=== PATIENT | male | born 1960 | race Caucasian/White ===

== ENCOUNTER 2019-10-16 20:11 | Inpatient (IN) | payer MEDICARE, MEDICAID ==
[2019-10-17 02:54] VITALS: BP 153/92
[2019-10-17] MEDS ORDERED: Magnesium Hydroxide (MOM) 30 mL UDC PO PRN (06:33)
[2019-10-17] MEDS ORDERED: Fleet Enema 135 mL RC PRN (06:33)
[2019-10-17] MEDS: Insulin Glargine 100 units/ml 10ml Vial SUBQ SCH ×2 (09:34→17:00)
[2019-10-17] MEDS: INSULIN LISPRO SLIDING SCALE 100 UNITS/ML UNIT SUBQ SCH ×4 (09:46→20:27)
--- NOTE | 2019-10-17 12:38 | Psychiatric Evaluation ---
DATE OF SERVICE: 10/17/2019 IDENTIFYING DATA: The patient is a 59-year-old male, resident of [facility]. Information obtained by directly interviewing the patient as well as reviewing the admission papers and they are reliable. JUSTIFICATION OF HOSPITALIZATION: The patient is admitted here on a voluntary basis in view of his acute agitation and aggressive behavior. CHIEF COMPLAINT: "I don't know why they have to send me in here." HISTORY OF PRESENT ILLNESS: This is the first psychiatric hospitalization to [facility] for this patient who is reported to have been screaming and yelling and getting easily agitated and the patient could not be contained at a lower level of care and hence the patient has been referred over here for stabilization. I tried to get some information from the patient, but the patient has been very irritable and angry and is stating there is no reason for him to be in here, he needs to be back at the facility, is reporting that he has been staying in there for the past 6 months. There is 1 person that has been causing more trouble and that is the reason why he is here. The patient is reluctant to take any medications at this time. PAST PSYCHIATRIC HISTORY: The patient denies any prior psychiatric hospitalizations. PAST MEDICAL HISTORY: The patient has multiple medical problems. Physical examination is requested by Dr. Gooden. The patient has a history of left foot osteomyelitis with status post transmetatarsal amputation in 10/2018 and the patient's history significant for diabetes mellitus. The patient is not allergic to any medications. SOCIAL HISTORY: The patient is resident of the [facility] for the past 6 months. The patient is reporting that his family is in [place] and he has no family around here. The patient has been worked in a long period of time. STRENGTH AND ASSETS: The patient is motivated. MENTAL STATUS EXAMINATION: The patient is a 59-year-old, looking his stated age. The patient is in a wheelchair. The patient is irritable and angry. Speech is noted to be coherent and relevant. Mood is noted to be dysphoric. Insight and judgment are noted to be impaired. Impulse control is noted to be limited. Attention span and concentration are noted to be fair. The patient is reported to have been getting easily frustrated. The patient is not presenting with any threats to harm self at this time, but the patient is reported to be aggressive. The patient at this time is refusing to take any medications. The patient's insight and judgment at this time are noted to be very much impaired. DIAGNOSTIC IMPRESSION: AXIS I: Mood disorder, not otherwise specified. AXIS II: None. AXIS III: As per Dr. Gooden. IMMEDIATE TREATMENT PLAN: The patient is going to be observed on inpatient unit, provided with supportive psychotherapy. The patient is going to be encouraged to participate in the groups and verbalize the concerns. The patient is going to be provided with the supportive therapy and the patient is going to be encouraged to participate. The patient is going to be assessed for depression because of the multiple medical problems and the patient is going to be considered for a mood stabilizer in case if he needs it, but at this time, he is refusing to take any medication. ESTIMATED LENGTH OF STAY: 5-7 days. DISCHARGE CRITERIA: When he no longer a threat to self or others and be able to cope up with the stress. [facility]# [id number]
--- NOTE | 2019-10-17 15:06 | History & Physical ---
ADMIT DATE: 10/17/2019 CHIEF COMPLAINT: The patient is agitated. HISTORY OF PRESENT ILLNESS: We have a 59-year-old male with diabetes, history of leg amputation, history of osteomyelitis. He was transferred for acute agitation at the lower level of care. The patient was acting aggressive according to medical records. The patient has no chest pain, shortness of breath. No nausea, vomiting, abdominal pain, or diarrhea. PAST MEDICAL HISTORY: Diabetes and history of osteomyelitis. PAST SURGICAL HISTORY: History of lower extremity amputation. MEDICATIONS: List reviewed. ALLERGIES: None. SOCIAL HISTORY: Tobacco, IV drugs, ETOH negative. PHYSICAL EXAMINATION: VITAL SIGNS: Temperature 98.8, pulse 90, respirations 20, blood pressure is 137/90. HEENT: Normocephalic and atraumatic head exam. NECK: Supple. CARDIOVASCULAR: Regular rate and rhythm. LUNGS: Decreased breath sounds. ABDOMEN: Soft, nontender. EXTREMITIES: No edema, cyanosis or clubbing. ASSESSMENT: 1. Diabetes. 2. Peripheral vascular disease, status post amputation. 3. Hypertension. 4. Agitation. 5. Depression. PLAN: The patient will continue with supportive care. The patient will continue with Accu-Cheks a.c. and at bedtime. The patient will get Lantus 15 ____ daily. JOB# [id number]
[2019-10-18] MEDS: INSULIN LISPRO SLIDING SCALE 100 UNITS/ML UNIT SUBQ SCH ×4 (06:42→20:23)
[2019-10-18] MEDS: Insulin Glargine 100 units/ml 10ml Vial SUBQ SCH ×2 (09:30→17:12)
--- NOTE | 2019-10-18 11:19 | Consultation ---
DATE OF CONSULTATION: 10/18/2019 TYPE OF CONSULTATION: Psychology consult. HISTORY OF PRESENT ILLNESS: The patient is a 59-year-old male. The patient is a resident of [facility]. The following is by review of the medical record and by the patient self-report. The patient is being admitted due to acute agitation and aggressive behavior. The staff at the patient's facility reports that the patient had become easily agitated and uncontainable with screaming and yelling episodes. The patient was transferred here for stabilization. Upon interview, the patient states that there is no reason for him to be hospitalized and he does not understand why he was sent here. The patient is stating that he does not want to take any medications. The patient denied any suicidal ideation, plan or intention at the time of this clinical interview. PAST MEDICAL HISTORY: Please see history and physical by Dr. Gooden. PAST PSYCHIATRIC HISTORY: The patient denied any prior psychiatric hospitalizations. Records are unavailable and details are unknown. The patient is under the care of a psychiatrist at his placement. SUBSTANCE ABUSE HISTORY: The patient denied any history of alcohol, tobacco, illicit or recreational drug use. BRIEF PSYCHOSOCIAL HISTORY: The patient is a resident of [facility]. The patient states he has a friend named Taylor, who is involved in his care. The patient reports that he has a family that lives in [facility], but no one here in [place]. The patient is unemployed and did not respond to the questions about occupational or educational history. The patient is single and never . The patient stated no specific methodist affiliation. He denies any history of physical or sexual abuse or any current legal problems. MENTAL STATUS EXAMINATION: The patient appears to be his stated age. The patient's attitude is guarded. Eye contact is fair. Speech is loud. Mood is irritable and angry and possibly dysphoric. Affect is mood congruent and reactive. Thought process shows to be linear and concrete. The patient responded to the clinical questions relevantly. The patient denied any suicidal ideation, plan or intention. He denied any hallucinations or any delusions. The patient's impulse control is inadequate. Concentration is fair. The patient was able to sustain focus and attention. Sensorium is alert and oriented to person, place, and date. The patient's memory seems to be reasonably intact for immediate, short term and terminal clerk dimensions. The patient did not participate in the interpretation of proverbs and continued to be frustrated and stated he is going to refuse medication. Insight is poor. Judgment is compromised DIAGNOSTIC IMPRESSION: AXIS I: Mood disorder, not otherwise specified. AXIS II: Deferred. AXIS III: Per Dr. Gooden. TREATMENT PLAN: The patient has been seen by Dr. Leahy for psychiatric evaluation and for the management of the patient's psychotropic medications. We will provide supportive psychotherapy to include de-escalation as well as cognitive and behavioral refocusing and redirection. We will provide stress management for the patient to increase his frustration tolerance and more appropriately interact with peers and staff at his placement. We will encourage the patient to verbalize his concerns versus anger outbursts. We will provide anger management as well. We will provide coping strategies for phase of life issues. We will reevaluate for depression and provide motivational enhancement for the patient to consider medication per the attending psychiatrist. Thank you, Dr. Leahy for this consult and the opportunity to participate with you in this patient's care. JOB# [id number] BERRY
--- NOTE | 2019-10-19 00:26 | Progress Notes ---
DATE: 10/18/2019 SUBJECTIVE: Staff was spoken to. The patient is interviewed. Mood is noted to be irritable. Affect is constricted. The patient is not engaging and the patient is stating that there is no reason for him to be in here, he needs to be back at the facility. Coping skills at this time are noted to be very poor. The patient is getting easily frustrated. The patient has no insight into his illness. The patient is not willing to take any other medications and hence I have decided to increase the dose of the gabapentin to 300 mg twice a day to contain the mood swings and irritability and follow the patient up. The patient is not ready to be discharged to a lower level of care yet. JOB# [id number]
[2019-10-19] MEDS: INSULIN LISPRO SLIDING SCALE 100 UNITS/ML UNIT SUBQ SCH ×4 (06:33→21:50)
[2019-10-19] MEDS: Insulin Glargine 100 units/ml 10ml Vial SUBQ SCH ×2 (09:00→16:36)
--- NOTE | 2019-10-19 11:33 | Progress Notes ---
DATE: 10/19/2019 SUBJECTIVE: Staff was spoken to. The patient is interviewed. Mood is noted to be irritable. Affect is constricted. The patient is very irritable. The patient is stating that other people are getting into his face and this is not the nice place for him to stay. There is not much of space in here for him to avoid the other people. Coping skills at this time are noted to be poor. Insight and judgment are also noted to be very much impaired. The patient is reluctant to take any medications to help him to decrease his anxiety or agitation. ASSESSMENT: The patient is still impulsive. PLAN: To continue the patient with the current medications and followup. JOB# [id number]
--- NOTE | 2019-10-19 14:32 | Internal Medicine Prog Note ---
Internal Medicine Subjective - Subjective Service Date: 10/19/19 Patient is:: verbal Per staff patient has:: no adverse event, no episodes of fall Internal Medicine Objective - Results Recent Labs: Laboratory Last Values POC Glucose 89 MG/DL (70 - 105) 10/19/19 06:07 - Physical Exam Vitals and I&O: Vital Signs Temp 98.1 F 10/19/19 06:38 Pulse 85 10/19/19 06:38 Resp 20 10/19/19 06:38 BP 133/76 10/19/19 06:38 Pulse Ox 98 10/19/19 06:38 Intake & Output 10/18/19 10/19/19 10/19/19 18:59 06:59 18:59 Intake Total 800 120 Balance 800 120 Intake: Oral 800 120 Other: # Voids 4 1 # Bowel Movements 0 0 Active Medications: Current Medications Acetaminophen (Tylenol) 650 mg PO Q4H PRN PRN Reason: Pain (Mild 1-3) Stop: 12/16/19 06:32 Bisacodyl (Dulcolax 10 Mg Supp) 10 mg RC Q24HR PRN PRN Reason: IF MOM INFEFFECTIVE Stop: 12/16/19 06:32 Gabapentin (Neurontin) 300 mg PO BID [facility] Stop: 12/17/19 16:59 Last Admin: 10/19/19 08:58 Dose: 300 mg Insulin Glargine (Lantus Insulin) 15 units SUBQ BID [facility] Stop: 12/16/19 08:59 Last Admin: 10/19/19 09:00 Dose: Not Given Insulin Human Lispro (Humalog Insulin Sliding Scale) 0 units SUBQ [facility]; Protocol Stop: 12/16/19 07:29 Last Admin: 10/19/19 11:38 Dose: Not Given Lorazepam (Ativan) 0.5 mg PO Q4HR PRN; Protocol PRN Reason: Anxiety Stop: 11/16/19 03:04 Magnesium Hydroxide (Milk Of Magnesia) 30 ml PO Q24HR PRN PRN Reason: Constipation Stop: 12/16/19 06:32 Sodium Phosphate (Fleet Enema) 135 ml RC Q24HR PRN PRN Reason: IF DULCOLAX INEFFECTIVE Stop: 12/16/19 06:32 Zolpidem Tartrate (Ambien) 5 mg PO HS PRN PRN Reason: Insomnia Stop: 12/16/19 02:53 Neck: Supple Lungs: CTAB Cardiovascular: RRR, Normal S1, Normal S2 Abdomen: soft Extremities: clear Internal Medicine Assmt/Plan - Assessment Assessment: 1. DM 2. HTN - Plan Plan: continue DM meds d/w R.N.
[2019-10-20] MEDS: INSULIN LISPRO SLIDING SCALE 100 UNITS/ML UNIT SUBQ SCH ×4 (06:39→21:07)
[2019-10-20] MEDS: Insulin Glargine 100 units/ml 10ml Vial SUBQ SCH ×2 (08:45→16:43)
--- NOTE | 2019-10-20 11:20 | Progress Notes ---
DATE: 10/20/2019 SUBJECTIVE: Staff was spoken to. The patient is interviewed. Mood is noted to be irritable. Affect is constricted. The patient's insight and judgment are noted to be still impaired. Impulse control seems to be limited. The patient is stating that people are bothering him. He is trying keep away from them, but is only limited space in here for him to avoid. The patient is reluctant to take any medication, stating that he does not want to take any whatever that he is on, is enough for him. ASSESSMENT: The patient is still irritable and angry. PLAN: To continue the patient with gabapentin and followup. JOB# [id number]
--- NOTE | 2019-10-20 14:27 | Internal Medicine Prog Note ---
Internal Medicine Subjective - Subjective Service Date: 10/20/19 Patient is:: verbal Per staff patient has:: no adverse event, no episodes of fall Internal Medicine Objective - Results Recent Labs: Laboratory Last Values POC Glucose 240 MG/DL (70 - 105) H 10/20/19 06:05 - Physical Exam Vitals and I&O: Vital Signs Temp 97.3 F 10/20/19 06:39 Pulse 82 10/20/19 06:39 Resp 18 10/20/19 06:39 BP 139/89 10/20/19 06:39 Pulse Ox 98 10/20/19 06:39 Intake & Output 10/19/19 10/20/19 10/20/19 18:59 06:59 18:59 Intake Total 1200 120 Balance 1200 120 Intake: Oral 1200 120 Other: # Voids 2 # Bowel Movements 1 Active Medications: Current Medications Acetaminophen (Tylenol) 650 mg PO Q4H PRN PRN Reason: Pain (Mild 1-3) Stop: 12/16/19 06:32 Bisacodyl (Dulcolax 10 Mg Supp) 10 mg RC Q24HR PRN PRN Reason: IF MOM INFEFFECTIVE Stop: 12/16/19 06:32 Gabapentin (Neurontin) 300 mg PO BID [facility] Stop: 12/17/19 16:59 Last Admin: 10/20/19 08:44 Dose: 300 mg Insulin Glargine (Lantus Insulin) 15 units SUBQ [facility] Stop: 12/16/19 08:59 Last Admin: 10/20/19 08:45 Dose: 15 units Insulin Human Lispro (Humalog Insulin Sliding Scale) 0 units SUBQ [facility]; Protocol Stop: 12/16/19 07:29 Last Admin: 10/20/19 12:21 Dose: Not Given Lorazepam (Ativan) 0.5 mg PO Q4HR PRN; Protocol PRN Reason: Anxiety Stop: 11/16/19 03:04 Magnesium Hydroxide (Milk Of Magnesia) 30 ml PO Q24HR PRN PRN Reason: Constipation Stop: 12/16/19 06:32 Sodium Phosphate (Fleet Enema) 135 ml RC Q24HR PRN PRN Reason: IF DULCOLAX INEFFECTIVE Stop: 12/16/19 06:32 Zolpidem Tartrate (Ambien) 5 mg PO HS PRN PRN Reason: Insomnia Stop: 12/16/19 02:53 Neck: Supple Lungs: CTAB Cardiovascular: RRR, Normal S1, Normal S2 Abdomen: soft Extremities: clear Internal Medicine Assmt/Plan - Assessment Assessment: 1. DM 2. HTN - Plan Plan: continue DM meds d/w R.N.
[2019-10-21] MEDS: INSULIN LISPRO SLIDING SCALE 100 UNITS/ML UNIT SUBQ SCH ×4 (06:57→21:20)
[2019-10-21] MEDS: Insulin Glargine 100 units/ml 10ml Vial SUBQ SCH ×2 (08:25→16:26)
--- NOTE | 2019-10-21 14:04 | Progress Notes ---
DATE: 10/21/2019 PSYCHIATRIC PROGRESS NOTE SUBJECTIVE: Staff was spoken to. The patient is interviewed. Mood is noted to be irritable. Affect is constricted. Insight and judgment at this time are noted to be still impaired. Impulse control is noted to be limited. Coping skills are noted to be limited. The patient has been having difficult time to cope with the stress. The patient is reported to have been having difficult time to cope with the other people and the patient is getting into arguments. ASSESSMENT: The patient is still impulsive, but does not want to take any medications except the gabapentin that he is taking. He denies any auditory hallucinations, no delusions are noted. PLAN: To continue the patient with the supportive therapy, encouraged the patient to verbalize the concerns rather than to act out. JOB# [id number]
[2019-10-22] MEDS: INSULIN LISPRO SLIDING SCALE 100 UNITS/ML UNIT SUBQ SCH ×5 (06:48→20:49)
[2019-10-22] MEDS: Insulin Glargine 100 units/ml 10ml Vial SUBQ SCH ×2 (09:07→16:25)
--- NOTE | 2019-10-22 11:10 | Progress Notes ---
DATE: PSYCHOLOGY PROGRESS NOTE SUBJECTIVE: The patient is seen in his wheelchair in the hallway. The patient is interviewed. Case is discussed with staff. The patient is responsive to the clinical questions and answered relevantly. The patient stated that in the past he has tried antidepressant medication and states that this has been ineffective. The patient stated that he did not experience any adverse effects from the medication, but is unwilling to agree to take this type of medication. The patient is friendly and cooperative. The patient stated that he wishes to return back to his [place] [facility]. He states that he has friends there and that he has a good relationship with his staff. Staff here reports the patient has not had any outbursts or has not been getting into any arguments; however, they state that the patient is having difficulty and arguing with one other patient on the unit. OBJECTIVE: Mood is less irritable. Affect is mood congruent and reactive. Thought process shows to be linear and concrete. The patient denied any suicidal ideation, plan or intention or any hopelessness or helplessness. The patient states that he has been arguing with one patient here. Both the patient and the staff indicate that the other patient on the unit is the instigator. No striking out behavior is noted. ASSESSMENT: The patient's impulsivity is lessening somewhat. Staff reports the patient is taking the medication with respect to his diabetes, but has declined to take gabapentin. The patient did accept Ativan earlier. Staff reports the patient responded to behavioral redirection and has been avoiding the other peer on the unit so as to avoid conflict. PLAN: We provided conflict resolution as well as stress management for the patient to increase his frustration tolerance. We provided reality integration. We provided remotivation for the patient to become compliant and stay compliant with all aspects of his care and treatment. We provided positive reinforcement for appropriate behavior with peers and staff. We provided simple cognitive behavioral skills with respect to avoiding conflict with the peer on the unit as well as how to more appropriately interact with staff and peers at his facility versus acting out. We provided coping strategies for phase of life issues as well. We will follow up in 2-3 days if the patient remains on the unit to continue the present treatment. JOB# [id number] BERRY
--- NOTE | 2019-10-22 11:10 | Progress Notes ---
DATE: 10/22/2019 SUBJECTIVE: Staff was spoken to. The patient is interviewed. Mood is noted to be irritable. Affect is constricted. The patient is reported to have been instigating the problems on the unit. The patient has no insight into his illness. The patient at this time is being closely monitored. The patient has to be given a dose of Ativan to calm him down yesterday. The patient is partially compliant with the medications. ASSESSMENT: The patient is still impulsive. PLAN: To continue the patient with the supportive therapy and followup. JOB# [id number]
[2019-10-23] MEDS: INSULIN LISPRO SLIDING SCALE 100 UNITS/ML UNIT SUBQ SCH ×4 (06:51→20:29)
[2019-10-23] MEDS: Insulin Glargine 100 units/ml 10ml Vial SUBQ SCH ×2 (08:26→16:48)
--- NOTE | 2019-10-23 12:51 | Progress Notes ---
DATE: 10/23/2019 PSYCHIATRIC PROGRESS NOTE SUBJECTIVE: Staff was spoken to. The patient is interviewed. Mood is noted to be irritable. Affect is constricted. The patient is less irritable today and the patient has been mentioning that he has been trying his best to stay away from the people and the manager case management has been spoken to and they are mentioning that the patient is not accepted back at the facility and the patient needs ____. They have to look for a different facility. The patient is stating that he is okay with the gabapentin. Does not want to take any other medications. The patient is going to be closely monitored for his impulsivity and the patient is going to be looked for placement. JOB# [id number]
--- NOTE | 2019-10-23 13:55 | Internal Medicine Prog Note ---
Internal Medicine Subjective - Subjective Service Date: 10/23/19 Patient seen and examined:: without staff Patient is:: verbal Per staff patient has:: no adverse event, no episodes of fall Internal Medicine Objective - Results Recent Labs: Laboratory Last Values POC Glucose 79 MG/DL (70 - 105) 10/23/19 06:13 - Physical Exam Vitals and I&O: Vital Signs Temp 97.7 F 10/23/19 06:16 Pulse 81 10/23/19 06:16 Resp 18 10/23/19 06:16 BP 138/85 10/23/19 06:16 Pulse Ox 97 10/23/19 06:16 Intake & Output 10/22/19 10/23/19 10/23/19 18:59 06:59 18:59 Intake Total 1200 240 Balance 1200 240 Intake: Oral 1200 240 Other: # Voids 4 1 # Bowel Movements 1 Active Medications: Current Medications Acetaminophen (Tylenol) 650 mg PO Q4H PRN PRN Reason: Pain (Mild 1-3) Stop: 12/16/19 06:32 Bisacodyl (Dulcolax 10 Mg Supp) 10 mg RC Q24HR PRN PRN Reason: IF MOM INFEFFECTIVE Stop: 12/16/19 06:32 Gabapentin (Neurontin) 300 mg PO TID [facility] Stop: 12/21/19 13:59 Last Admin: 10/23/19 08:26 Dose: 300 mg Insulin Glargine (Lantus Insulin) 15 units SUBQ [facility] Stop: 12/16/19 08:59 Last Admin: 10/23/19 08:26 Dose: 15 units Insulin Human Lispro (Humalog Insulin Sliding Scale) 0 units SUBQ [facility]; Protocol Stop: 12/16/19 07:29 Last Admin: 10/23/19 11:29 Dose: Not Given Lorazepam (Ativan) 0.5 mg PO Q4HR PRN; Protocol PRN Reason: Anxiety Stop: 11/16/19 03:04 Magnesium Hydroxide (Milk Of Magnesia) 30 ml PO Q24HR PRN PRN Reason: Constipation Stop: 12/16/19 06:32 Sodium Phosphate (Fleet Enema) 135 ml RC Q24HR PRN PRN Reason: IF DULCOLAX INEFFECTIVE Stop: 12/16/19 06:32 Zolpidem Tartrate (Ambien) 5 mg PO HS PRN PRN Reason: Insomnia Stop: 12/16/19 02:53 Neck: Supple Lungs: CTAB Cardiovascular: RRR, Normal S1, Normal S2 Abdomen: soft Extremities: clear Internal Medicine Assmt/Plan - Assessment Assessment: 1. DM 2. HTN - Plan Plan: reviewed blood sugar diary continue Lantus 15 units sq daily reviewed medical records and d/w R.N. Nutritional Asmnt/Malnutr-PDOC - Dietary Evaluation Malnutrition Findings (Please click <Entered> for more info): Nutritional Asmnt/Malnutrition Start: 10/21/19 09: 41 Text: Status: Complete Freq: Protocol: Document 10/21/19 13:13 MMULSHAYLEE (Rec: 10/21/19 13:22 [email or web address] REEDER- [id number]) Nutritional Asmnt/Malnutrition Patient General Information Nutritional Screening Moderate Risk Diagnosis Psychosis Pertinent Medical Hx/Surgical Hx diabetes, leg amputation, osteomyelitis. Subjective Information Patient was admitted from [facility], hx of [facility]. Tolerating current diet with adequate intake ~1600 kcal, 80gm protein, meeting nutrient needs. Current Diet Order/ Nutrition Support 60 gm CCHO Patient / S.O Not Indicated Pertinent Medications dulcolax, lantus, humalog, MOM , fleet enema Pertinent Labs POC glucose 81-287 Nutritional Hx/Data Height 1.73 m Height (Calculated Centimeters) 172.7 Current Weight (lbs) 72.575 kg Weight (Calculated Kilograms) 72.6 Weight (Calculated Grams) 51418.8 [place] Body Weight 154 % [place] Body Weight 103 Body Mass Index (BMI) 24.3 Recent Weight Change No Weight Status Approriate GI Symptoms GI Symptoms None Last BM 6/5 x 1 Difficult in: None Food Allergies No Cultural/Ethnic/Denominational Belief none indicated Usual diet at home unknown Skin Integrity/Comment: [place] 18, intact Current %PO Good (75-100%) Estimated Nutritional Goals BEE in Kcals: Using Current wt Calories/Kcals/Kg 72.7kg CBW Kcals Calculated ~7204-0210 kcal/day Protein: Using Current wt Protein g/k gm/kg Protein Calculated ~75 gm/day Fluid: ml ~6747-0670 ml/day Nutritional Problem 1. Problem Problem Altered nutrition related lab values related to Etiology uncontrolled hyperglycemia aeb Signs/Symptoms: POC glucose 81-287 Intervention/Recommendation Comments 1. continue 60 gm CCHO diet as tolerated by patient 2. MD to modify insulin regimen as needed for optimal glycemic control. Expected Outcomes/Goals Expected Outcomes/Goals oral intake >75% of meals, weight stable, glucose normalizes F/U MR 10/23-
[2019-10-24] MEDS: INSULIN LISPRO SLIDING SCALE 100 UNITS/ML UNIT SUBQ SCH ×4 (06:54→20:39)
[2019-10-24] MEDS: Insulin Glargine 100 units/ml 10ml Vial SUBQ SCH ×2 (08:48→17:56)
--- NOTE | 2019-10-24 11:33 | Internal Medicine Prog Note ---
Internal Medicine Subjective - Subjective Service Date: 10/24/19 Patient seen and examined:: without staff Patient is:: verbal Per staff patient has:: no adverse event, no episodes of fall Internal Medicine Objective - Results Recent Labs: Laboratory Last Values POC Glucose 259 MG/DL (70 - 105) H 10/24/19 08:47 - Physical Exam Vitals and I&O: Vital Signs Temp 98.6 F 10/24/19 06:21 Pulse 91 10/24/19 06:21 Resp 20 10/24/19 06:21 BP 136/82 10/24/19 06:21 Pulse Ox 97 10/24/19 06:21 Intake & Output 10/23/19 10/24/19 10/24/19 18:59 06:59 18:59 Intake Total 420 Balance 420 Intake: Oral 420 Other: # Voids 2 2 # Bowel Movements 1 0 Active Medications: Current Medications Acetaminophen (Tylenol) 650 mg PO Q4H PRN PRN Reason: Pain (Mild 1-3) Stop: 12/16/19 06:32 Bisacodyl (Dulcolax 10 Mg Supp) 10 mg RC Q24HR PRN PRN Reason: IF MOM INFEFFECTIVE Stop: 12/16/19 06:32 Gabapentin (Neurontin) 300 mg PO TID [facility] Stop: 12/21/19 13:59 Last Admin: 10/24/19 08:24 Dose: 300 mg Insulin Glargine (Lantus Insulin) 15 units SUBQ BID [facility] Stop: 12/16/19 08:59 Last Admin: 10/24/19 08:48 Dose: 15 units Insulin Human Lispro (Humalog Insulin Sliding Scale) 0 units SUBQ ACHS [facility]; Protocol Stop: 12/16/19 07:29 Last Admin: 10/24/19 06:54 Dose: 3 units Lorazepam (Ativan) 0.5 mg PO Q4HR PRN; Protocol PRN Reason: Anxiety Stop: 11/16/19 03:04 Magnesium Hydroxide (Milk Of Magnesia) 30 ml PO Q24HR PRN PRN Reason: Constipation Stop: 12/16/19 06:32 Sodium Phosphate (Fleet Enema) 135 ml RC Q24HR PRN PRN Reason: IF DULCOLAX INEFFECTIVE Stop: 12/16/19 06:32 Zolpidem Tartrate (Ambien) 5 mg PO HS PRN PRN Reason: Insomnia Stop: 12/16/19 02:53 Neck: Supple Lungs: CTAB Cardiovascular: RRR, Normal S1, Normal S2 Abdomen: soft Extremities: clear Internal Medicine Assmt/Plan - Assessment Assessment: 1. DM, poorly controlled HGA1C of 8.5 2. HTN - Plan Plan: reviewed blood sugar diary increase Lantus 20 units sq daily reviewed medical records and d/w R.N. Nutritional Asmnt/Malnutr-PDOC - Dietary Evaluation Malnutrition Findings (Please click <Entered> for more info): Nutritional Asmnt/Malnutrition Start: 10/21/19 09: 41 Text: Status: Complete Freq: Protocol: Document 10/21/19 13:13 MMHEBER (Rec: 10/21/19 13:22 MMULSHAYLEE REEDER- [id number]) Nutritional Asmnt/Malnutrition Patient General Information Nutritional Screening Moderate Risk Diagnosis Psychosis Pertinent Medical Hx/Surgical Hx diabetes, leg amputation, osteomyelitis. Subjective Information Patient was admitted from [facility], hx of [facility]. Tolerating current diet with adequate intake ~1600 kcal, 80gm protein, meeting nutrient needs. Current Diet Order/ Nutrition Support 60 gm [facility] Patient / S.O Not Indicated Pertinent Medications dulcolax, lantus, humalog, MOM , fleet enema Pertinent Labs POC glucose 81-287 Nutritional Hx/Data Height 1.73 m Height (Calculated Centimeters) 172.7 Current Weight (lbs) 72.575 kg Weight (Calculated Kilograms) 72.6 Weight (Calculated Grams) 66173.8 [place] Body Weight 154 % [place] Body Weight 103 Body Mass Index (BMI) 24.3 Recent Weight Change No Weight Status Approriate GI Symptoms GI Symptoms None Last BM 6/5 x 1 Difficult in: None Food Allergies No Cultural/Ethnic/Zoroastrian Belief none indicated Usual diet at home unknown Skin Integrity/Comment: Ramsey 18, intact Current %PO Good (75-100%) Estimated Nutritional Goals BEE in Kcals: Using Current wt Calories/Kcals/Kg 72.7kg CBW Kcals Calculated ~6310-9387 kcal/day Protein: Using Current wt Protein g/k gm/kg Protein Calculated ~75 gm/day Fluid: ml ~7442-9094 ml/day Nutritional Problem 1. Problem Problem Altered nutrition related lab values related to Etiology uncontrolled hyperglycemia aeb Signs/Symptoms: POC glucose 81-287 Intervention/Recommendation Comments 1. continue 60 gm CCHO diet as tolerated by patient 2. MD to modify insulin regimen as needed for optimal glycemic control. Expected Outcomes/Goals Expected Outcomes/Goals oral intake >75% of meals, weight stable, glucose normalizes F/U MR 10/23-
--- NOTE | 2019-10-24 15:06 | Progress Notes ---
DATE: 10/24/2019 SUBJECTIVE: Staff was spoken to. The patient is interviewed. Mood is noted to be anxious. The patient is stating that he is trying his best to contain his anger and temper and not to get into any once business. The patient is stating that he wants to go to some place close to [facility] to a nursing home facility. ASSESSMENT: The patient's impulsivity is coming under control, but the patient has no place to return to at this time. PLAN: To continue the patient with the supportive therapy and followup. JOB# [id number]
[2019-10-25] MEDS: INSULIN LISPRO SLIDING SCALE 100 UNITS/ML UNIT SUBQ SCH ×4 (07:00→21:34)
[2019-10-25] MEDS: Insulin Glargine 100 units/ml 10ml Vial SUBQ SCH ×2 (08:47→21:32)
--- NOTE | 2019-10-25 17:30 | Internal Medicine Prog Note ---
Internal Medicine Subjective - Subjective Service Date: 10/25/19 Patient seen and examined:: without staff Patient is:: verbal Per staff patient has:: no adverse event, no episodes of fall Internal Medicine Objective - Results Recent Labs: Laboratory Last Values POC Glucose 288 MG/DL (70 - 105) H 10/25/19 16:47 - Physical Exam Vitals and I&O: Vital Signs Temp 99.3 F 10/25/19 14:00 Pulse 93 10/25/19 14:00 Resp 18 10/25/19 14:00 BP 150/71 10/25/19 14:00 Pulse Ox 97 10/25/19 14:00 Intake & Output 10/24/19 10/25/19 10/25/19 18:59 06:59 18:59 Intake Total 120 Balance 120 Intake: Oral 120 Other: # Voids 3 2 # Bowel Movements 1 Active Medications: Current Medications Acetaminophen (Tylenol) 650 mg PO Q4H PRN PRN Reason: Pain (Mild 1-3) Stop: 12/16/19 06:32 Bisacodyl (Dulcolax 10 Mg Supp) 10 mg RC Q24HR PRN PRN Reason: IF MOM INFEFFECTIVE Stop: 12/16/19 06:32 Dextrose (Glutose 40%) 37.5 gm PO PRN PRN PRN Reason: hypoglycemia Stop: 12/24/19 07:25 Gabapentin (Neurontin) 300 mg PO TID [facility] Stop: 12/21/19 13:59 Last Admin: 10/25/19 15:00 Dose: 300 mg Insulin Glargine (Lantus Insulin) 20 units SUBQ HS [facility] Stop: 12/24/19 20:59 Insulin Human Lispro (Humalog Insulin Sliding Scale) 0 units SUBQ ACHS [facility]; Protocol Stop: 12/16/19 07:29 Last Admin: 10/25/19 17:12 Dose: 8 units Lorazepam (Ativan) 0.5 mg PO Q4HR PRN; Protocol PRN Reason: Anxiety Stop: 11/16/19 03:04 Magnesium Hydroxide (Milk Of Magnesia) 30 ml PO Q24HR PRN PRN Reason: Constipation Stop: 12/16/19 06:32 Sodium Phosphate (Fleet Enema) 135 ml RC Q24HR PRN PRN Reason: IF DULCOLAX INEFFECTIVE Stop: 12/16/19 06:32 Zolpidem Tartrate (Ambien) 5 mg PO HS PRN PRN Reason: Insomnia Stop: 12/16/19 02:53 Neck: Supple Lungs: CTAB Cardiovascular: RRR, Normal S1, Normal S2 Abdomen: soft Extremities: clear Internal Medicine Assmt/Plan - Assessment Assessment: 1. DM, 2. HTN - Plan Plan: reviewed blood sugar diary continue Lantus 20 units sq daily reviewed medical records and d/w R.N. Nutritional Asmnt/Malnutr-PDOC - Dietary Evaluation Malnutrition Findings (Please click <Entered> for more info): Nutritional Asmnt/Malnutrition Start: 10/21/19 09: 41 Text: Status: Complete Freq: Protocol: Document 10/21/19 13:13 JENNIFER (Rec: 10/21/19 13:22 MMULSHAYLEE REEDER- [id number]) Nutritional Asmnt/Malnutrition Patient General Information Nutritional Screening Moderate Risk Diagnosis Psychosis Pertinent Medical Hx/Surgical Hx diabetes, leg amputation, osteomyelitis. Subjective Information Patient was admitted from [facility], hx of BKA. Tolerating current diet with adequate intake ~1600 kcal, 80gm protein, meeting nutrient needs. Current Diet Order/ Nutrition Support 60 gm CCHO Patient / S.O Not Indicated Pertinent Medications dulcolax, lantus, humalog, MOM , fleet enema Pertinent Labs POC glucose 81-287 Nutritional Hx/Data Height 1.73 m Height (Calculated Centimeters) 172.7 Current Weight (lbs) 72.575 kg Weight (Calculated Kilograms) 72.6 Weight (Calculated Grams) 27650.8 [place] Body Weight 154 % [place] Body Weight 103 Body Mass Index (BMI) 24.3 Recent Weight Change No Weight Status Approriate GI Symptoms GI Symptoms None Last BM 6/5 x 1 Difficult in: None Food Allergies No Cultural/Ethnic/Jew Belief none indicated Usual diet at home unknown Skin Integrity/Comment: [place] 18, intact Current %PO Good (75-100%) Estimated Nutritional Goals BEE in Kcals: Using Current wt Calories/Kcals/Kg 72.7kg CBW Kcals Calculated ~6275-2026 kcal/day Protein: Using Current wt Protein g/k gm/kg Protein Calculated ~75 gm/day Fluid: ml ~5548-7011 ml/day Nutritional Problem 1. Problem Problem Altered nutrition related lab values related to Etiology uncontrolled hyperglycemia aeb Signs/Symptoms: POC glucose 81-287 Intervention/Recommendation Comments 1. continue 60 gm CCHO diet as tolerated by patient 2. MD to modify insulin regimen as needed for optimal glycemic control. Expected Outcomes/Goals Expected Outcomes/Goals oral intake >75% of meals, weight stable, glucose normalizes F/U MR 10/23-
--- NOTE | 2019-10-25 19:43 | Progress Notes ---
DATE: 10/25/2019 SUBJECTIVE: Staff was spoken to. The patient is interviewed. Mood is noted to be irritable. Affect is constricted. The patient is getting frustrated that he is not accepted back at the same facility that he came from. The patient is refusing to take any medications, but the patient is stating that he is trying to control his temper and then he is staying away from other patients. The patient is only on gabapentin. The patient wants to go to any assisted facility close to [place]. ASSESSMENT: The patient is awaiting placement and is stabilizing. PLAN: To continue the patient with the current medications and followup. JOB# [id number]
[2019-10-26] MEDS: INSULIN LISPRO SLIDING SCALE 100 UNITS/ML UNIT SUBQ SCH ×4 (06:53→21:35)
--- NOTE | 2019-10-26 11:45 | Progress Notes ---
DATE: 10/26/2019 SUBJECTIVE: Staff was spoken to. The patient is interviewed. Mood is noted to be irritable. Affect is constricted. Insight and judgment at this time are noted to be still impaired. Impulse control is noted to be limited. Coping skills are noted to be limited. The patient is getting frustrated that he is not able to be placed yet. Social workers have been trying to see if he can be returned back to the same facility and the facility seems to be discussing today whether they can take the patient back or not. ASSESSMENT: The patient is stabilizing and awaiting placement. PLAN: To continue the patient with the supportive therapy and followup. JOB# [id number]
--- NOTE | 2019-10-26 17:41 | Internal Medicine Prog Note ---
Internal Medicine Subjective - Subjective Service Date: 10/26/19 Patient is:: verbal Per staff patient has:: no adverse event, no episodes of fall Internal Medicine Objective - Results Recent Labs: Laboratory Last Values POC Glucose 200 MG/DL (70 - 105) H 10/26/19 11:38 - Physical Exam Vitals and I&O: Vital Signs Temp 98.4 F 10/26/19 14:00 Pulse 103 10/26/19 14:00 Resp 18 10/26/19 14:00 BP 136/74 10/26/19 14:00 Pulse Ox 98 10/26/19 14:00 Intake & Output 10/25/19 10/26/19 10/26/19 18:59 06:59 18:59 Intake Total 1673 740 6787 Balance 7826 973 3045 Intake: Oral 7636 198 8899 Other: # Voids 2 4 # Bowel Movements 1 1 Active Medications: Current Medications Acetaminophen (Tylenol) 650 mg PO Q4H PRN PRN Reason: Pain (Mild 1-3) Stop: 12/16/19 06:32 Bisacodyl (Dulcolax 10 Mg Supp) 10 mg RC Q24HR PRN PRN Reason: IF MOM INFEFFECTIVE Stop: 12/16/19 06:32 Dextrose (Glutose 40%) 37.5 gm PO PRN PRN PRN Reason: hypoglycemia Stop: 12/24/19 07:25 Gabapentin (Neurontin) 300 mg PO TID [facility] Stop: 12/21/19 13:59 Last Admin: 10/26/19 14:08 Dose: 300 mg Insulin Glargine (Lantus Insulin) 20 units SUBQ HS [facility] Stop: 12/24/19 20:59 Last Admin: 10/25/19 21:32 Dose: 20 units Insulin Human Lispro (Humalog Insulin Sliding Scale) 0 units SUBQ ACHS [facility]; Protocol Stop: 12/16/19 07:29 Last Admin: 10/26/19 16:58 Dose: 6 units Lorazepam (Ativan) 0.5 mg PO Q4HR PRN; Protocol PRN Reason: Anxiety Stop: 11/16/19 03:04 Magnesium Hydroxide (Milk Of Magnesia) 30 ml PO Q24HR PRN PRN Reason: Constipation Stop: 12/16/19 06:32 Sodium Phosphate (Fleet Enema) 135 ml RC Q24HR PRN PRN Reason: IF DULCOLAX INEFFECTIVE Stop: 12/16/19 06:32 Zolpidem Tartrate (Ambien) 5 mg PO HS PRN PRN Reason: Insomnia Stop: 12/16/19 02:53 Neck: Supple Lungs: CTAB Cardiovascular: RRR, Normal S1, Normal S2 Abdomen: soft Extremities: clear Internal Medicine Assmt/Plan - Assessment Assessment: 1. DM, 2. HTN - Plan Plan: reviewed blood sugar diary continue Lantus 20 units sq daily reviewed medical records and d/w R.N. Nutritional Asmnt/Malnutr-PDOC - Dietary Evaluation Malnutrition Findings (Please click <Entered> for more info): Nutritional Asmnt/Malnutrition Start: 10/21/19 09: 41 Text: Status: Complete Freq: Protocol: Document 10/21/19 13:13 MMHEBER (Rec: 10/21/19 13:22 MMULSHAYLEE LILLI- [id number]) Nutritional Asmnt/Malnutrition Patient General Information Nutritional Screening Moderate Risk Diagnosis Psychosis Pertinent Medical Hx/Surgical Hx diabetes, leg amputation, osteomyelitis. Subjective Information Patient was admitted from [facility], hx of BKA. Tolerating current diet with adequate intake ~1600 kcal, 80gm protein, meeting nutrient needs. Current Diet Order/ Nutrition Support 60 gm CCHO Patient / S.O Not Indicated Pertinent Medications dulcolax, lantus, humalog, MOM , fleet enema Pertinent Labs POC glucose 81-287 Nutritional Hx/Data Height 1.73 m Height (Calculated Centimeters) 172.7 Current Weight (lbs) 72.575 kg Weight (Calculated Kilograms) 72.6 Weight (Calculated Grams) 15037.8 [place] Body Weight 154 % [place] Body Weight 103 Body Mass Index (BMI) 24.3 Recent Weight Change No Weight Status Approriate GI Symptoms GI Symptoms None Last BM 6/5 x 1 Difficult in: None Food Allergies No Cultural/Ethnic/Nondenominational Belief none indicated Usual diet at home unknown Skin Integrity/Comment: [place] 18, intact Current %PO Good (75-100%) Estimated Nutritional Goals BEE in Kcals: Using Current wt Calories/Kcals/Kg 72.7kg CBW Kcals Calculated ~1837-3584 kcal/day Protein: Using Current wt Protein g/k gm/kg Protein Calculated ~75 gm/day Fluid: ml ~9280-0006 ml/day Nutritional Problem 1. Problem Problem Altered nutrition related lab values related to Etiology uncontrolled hyperglycemia aeb Signs/Symptoms: POC glucose 81-287 Intervention/Recommendation Comments 1. continue 60 gm CCHO diet as tolerated by patient 2. MD to modify insulin regimen as needed for optimal glycemic control. Expected Outcomes/Goals Expected Outcomes/Goals oral intake >75% of meals, weight stable, glucose normalizes F/U MR 10/23-
--- NOTE | 2019-10-26 20:30 | Progress Notes ---
DATE: 10/25/2019 PSYCHOLOGY PROGRESS NOTE SUBJECTIVE: The patient is seen in his room and is interviewed. Case is discussed with staff. The patient presents as irritable and somewhat dismissive. The patient states he is frustrated with waiting for placement. Impulse control is still limited. The patient is having difficulty coping with the stress. The patient states that he does not want to return to the facility he was in previously; however, he stated he would go back there, if nothing else was available. OBJECTIVE: Mood is irritable and anxious. Affect is mood congruent and reactive. Thought process shows to be linear and frustrated with perseveration on the patient's life circumstances. The patient denied any suicidal ideation, plan or intention. He denied any auditory or visual hallucinations or any delusions. The patient's behavior has been responsive to staff direction. The patient continues to be frustrated with his current situation. ASSESSMENT: The patient's placement is being evaluated. PLAN: We provided coping strategies for phase of life issues as well as conflict resolution and problem solving skills to add to the patient's decision making process. We provided stress management to assist the patient in increasing his frustration tolerance. We will follow up in 2-3 days if the patient remains on the unit. The patient is most likely discharging as soon as placement is available. JOB# [id number] BERRY
[2019-10-26] MEDS: Insulin Glargine 100 units/ml 10ml Vial SUBQ SCH (21:34)
[2019-10-27] MEDS: INSULIN LISPRO SLIDING SCALE 100 UNITS/ML UNIT SUBQ SCH ×4 (06:43→19:00)
--- NOTE | 2019-10-27 12:39 | Internal Medicine Prog Note ---
Internal Medicine Subjective - Subjective Service Date: 10/27/19 Patient seen and examined:: without staff Patient is:: verbal Per staff patient has:: no adverse event, no episodes of fall Internal Medicine Objective - Results Recent Labs: Laboratory Last Values POC Glucose 147 MG/DL (70 - 105) H 10/27/19 11:30 - Physical Exam Vitals and I&O: Vital Signs Temp 98.2 F 10/27/19 06:52 Pulse 85 10/27/19 06:52 Resp 20 10/27/19 06:52 BP 146/95 10/27/19 06:52 Pulse Ox 98 10/27/19 06:52 Intake & Output 10/26/19 10/27/19 10/27/19 18:59 06:59 18:59 Intake Total 1200 240 Balance 1200 240 Intake: Oral 1200 240 Other: # Voids 4 2 # Bowel Movements 1 0 Active Medications: Current Medications Acetaminophen (Tylenol) 650 mg PO Q4H PRN PRN Reason: Pain (Mild 1-3) Stop: 12/16/19 06:32 Bisacodyl (Dulcolax 10 Mg Supp) 10 mg RC Q24HR PRN PRN Reason: IF MOM INFEFFECTIVE Stop: 12/16/19 06:32 Dextrose (Glutose 40%) 37.5 gm PO PRN PRN PRN Reason: hypoglycemia Stop: 12/24/19 07:25 Gabapentin (Neurontin) 300 mg PO TID [facility] Stop: 12/21/19 13:59 Last Admin: 10/27/19 08:58 Dose: 300 mg Insulin Glargine (Lantus Insulin) 20 units SUBQ HS [facility] Stop: 12/24/19 20:59 Last Admin: 10/26/19 21:34 Dose: 20 units Insulin Human Lispro (Humalog Insulin Sliding Scale) 0 units SUBQ ACHS [facility]; Protocol Stop: 12/16/19 07:29 Last Admin: 10/27/19 11:43 Dose: Not Given Lorazepam (Ativan) 0.5 mg PO Q4HR PRN; Protocol PRN Reason: Anxiety Stop: 11/16/19 03:04 Magnesium Hydroxide (Milk Of Magnesia) 30 ml PO Q24HR PRN PRN Reason: Constipation Stop: 12/16/19 06:32 Sodium Phosphate (Fleet Enema) 135 ml RC Q24HR PRN PRN Reason: IF DULCOLAX INEFFECTIVE Stop: 12/16/19 06:32 Zolpidem Tartrate (Ambien) 5 mg PO HS PRN PRN Reason: Insomnia Stop: 12/16/19 02:53 Neck: Supple Lungs: CTAB Cardiovascular: RRR, Normal S1, Normal S2 Abdomen: soft Extremities: clear Internal Medicine Assmt/Plan - Assessment Assessment: 1. DM, 2. HTN - Plan Plan: reviewed blood sugar diary continue Lantus 20 units sq daily reviewed medical records and d/w R.N. Nutritional Asmnt/Malnutr-PDOC - Dietary Evaluation Malnutrition Findings (Please click <Entered> for more info): Nutritional Asmnt/Malnutrition Start: 10/21/19 09: 41 Text: Status: Complete Freq: Protocol: Document 10/21/19 13:13 MMHEBER (Rec: 10/21/19 13:22 MMULSHAYLEE LILLI- [id number]) Nutritional Asmnt/Malnutrition Patient General Information Nutritional Screening Moderate Risk Diagnosis Psychosis Pertinent Medical Hx/Surgical Hx diabetes, leg amputation, osteomyelitis. Subjective Information Patient was admitted from [facility], hx of BKA. Tolerating current diet with adequate intake ~1600 kcal, 80gm protein, meeting nutrient needs. Current Diet Order/ Nutrition Support 60 gm CCHO Patient / S.O Not Indicated Pertinent Medications dulcolax, lantus, humalog, MOM , fleet enema Pertinent Labs POC glucose 81-287 Nutritional Hx/Data Height 1.73 m Height (Calculated Centimeters) 172.7 Current Weight (lbs) 72.575 kg Weight (Calculated Kilograms) 72.6 Weight (Calculated Grams) 79824.8 [place] Body Weight 154 % [place] Body Weight 103 Body Mass Index (BMI) 24.3 Recent Weight Change No Weight Status Approriate GI Symptoms GI Symptoms None Last BM 6/5 x 1 Difficult in: None Food Allergies No Cultural/Ethnic/Episcopal Belief none indicated Usual diet at home unknown Skin Integrity/Comment: [place] 18, intact Current %PO Good (75-100%) Estimated Nutritional Goals BEE in Kcals: Using Current wt Calories/Kcals/Kg 72.7kg CBW Kcals Calculated ~0754-0033 kcal/day Protein: Using Current wt Protein g/k gm/kg Protein Calculated ~75 gm/day Fluid: ml ~9238-5823 ml/day Nutritional Problem 1. Problem Problem Altered nutrition related lab values related to Etiology uncontrolled hyperglycemia aeb Signs/Symptoms: POC glucose 81-287 Intervention/Recommendation Comments 1. continue 60 gm CCHO diet as tolerated by patient 2. MD to modify insulin regimen as needed for optimal glycemic control. Expected Outcomes/Goals Expected Outcomes/Goals oral intake >75% of meals, weight stable, glucose normalizes F/U MR 10/23-
--- NOTE | 2019-10-27 13:47 | Progress Notes ---
DATE: 10/27/2019 PSYCHIATRIC PROGRESS NOTE SUBJECTIVE: Staff was spoken to. The patient is interviewed. Mood is noted to be less irritable. Affect is appropriate. The patient is pacing from one end of the hallway to the other and the patient is reported to have been still having difficult time in coping along with other patients, but the patient is stating that he is trying to keep to himself. No side effects to the medications are noted. The patient is willing to comply with the treatment. ASSESSMENT: The patient is stabilizing and awaiting placement. PLAN: To continue the patient with the current medications and followup. JOB# [id number]
[2019-10-27] MEDS: Insulin Glargine 100 units/ml 10ml Vial SUBQ SCH (22:45)
[2019-10-28] MEDS: INSULIN LISPRO SLIDING SCALE 100 UNITS/ML UNIT SUBQ SCH ×4 (06:29→21:43)
--- NOTE | 2019-10-28 10:52 | Progress Notes ---
DATE: 10/27/2019 PSYCHOLOGY PROGRESS NOTE SUBJECTIVE: The patient is seen up in his wheelchair. Case is discussed with staff. The patient presents as somewhat dismissive and continues to be frustrated. The patient continues to await placement. Staff reports the patient continues to have difficulty coping and interacting with peers on the unit, but is compliant with treatment. OBJECTIVE: Mood is irritable. Affect is constricted. Thought process shows to be linear, but concrete. The patient continues to blame others for his current circumstances. He denied any hallucinations or delusions. He denies any suicidal ideation or homicidal ideation, plan or intention. The patient is compliant with his medication. The patient has not been participating in the milieu therapy. ASSESSMENT: The patient is most likely approaching baseline and continues to await placement. PLAN: The patient will be continued with current medications according to the attending psychiatrist. We provided coping strategies as well as conflict resolution and problem solving. We provided stress management to increase the patient's frustration tolerance. We encouraged the patient to interact more appropriately with staff and peers and to be able to verbalize his concerns versus acting out. We will follow up with the patient in 2-3 days if the patient remains on the unit. [facility]# [id number]
--- NOTE | 2019-10-28 15:15 | Progress Notes ---
DATE: 10/28/2019 PSYCHIATRIC PROGRESS NOTE SUBJECTIVE: Staff was spoken to. The patient is interviewed. Mood is noted to be irritable. Affect is constricted. The patient's insight and judgment are noted to be improving. Impulse control seems to be a concern at this time. The patient is stating that he is frustrated for being in here for too long and could not figure it out where he is going to be ending up ____. The patient is stating that no one is paying any attention and has been getting easily frustrated. The patient's patient case manager has been trying to look for placement for this patient so far, none is available. PLAN: To continue the patient with the current medications and follow up. JOB# [id number]
[2019-10-28] MEDS: Insulin Glargine 100 units/ml 10ml Vial SUBQ SCH (21:42)
[2019-10-29] MEDS: INSULIN LISPRO SLIDING SCALE 100 UNITS/ML UNIT SUBQ SCH ×4 (06:37→21:08)
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
[2019-10-29] MEDS: Insulin Glargine 100 units/ml 10ml Vial SUBQ SCH (21:07)
[2019-10-30] MEDS: INSULIN LISPRO SLIDING SCALE 100 UNITS/ML UNIT SUBQ SCH ×2 (06:45→11:19)
--- NOTE | 2019-10-30 08:47 | Discharge Summary ---
DATE OF DISCHARGE: 10/30/2019 IDENTIFYING DATA: The patient is a 59-year-old male, resident of [facility]. Information obtained by directly interviewing the patient as well as reviewing the admission papers. JUSTIFICATION OF HOSPITALIZATION: The patient is admitted on a voluntary basis in view of his agitation and aggressive behavior. CHIEF COMPLAINT: "I don't know why they have to send me in here." DIAGNOSES AT THE TIME OF ADMISSION: AXIS I: Mood disorder, not otherwise specified. AXIS II: None. AXIS III: As per Dr. Gooden. HOSPITAL COURSE AND RESPONSE TO TREATMENT: The patient had the physical examination done by Dr. Gooden and he is noted to be significant for diabetes, peripheral vascular disease, status post amputation, and hypotension. The patient has been observed on inpatient unit, provided with supportive psychotherapy. The patient's blood work done at the time of the hospitalization have been reviewed and no major interventions were made. The patient has been continued on the gabapentin that was given 300 mg 3 times a day. The patient has been given insulin for his sugar and the patient has been maintained and the patient states that he is not suicidal, he is not homicidal, and he is not "crazy" and does not take any medications. The patient has been closely monitored with the gabapentin and aggressive behavior came under control and the patient was discharged finally on 10/30/2019 with recommendation. The patient is going to be followed up at the long term facility on an outpatient basis. MENTAL STATUS EXAMINATION: At the time of the discharge, the patient to be less irritable. Affect is appropriate. Not suicidal or homicidal. Insight and judgment are noted to be fair. Impulse control is also noted to be improving. The patient denies any auditory hallucinations or delusions are noted. CONDITION AT THE TIME OF DISCHARGE: Noted to be stable. Please note that the patient is not presenting as a threat to self or others. JOB# [id number]
--- NOTE | 2019-10-31 09:37 | Progress Notes ---
DATE: 10/30/2019 PSYCHOLOGY PROGRESS NOTE SUBJECTIVE: The patient is seen and is interviewed. Case is discussed with staff. Staff reports the patient is discharging today to a halfway in [place]. The patient states he anticipates an easy transition there and is looking forward to his discharge. Staff reports no recent agitation or aggressive behavior. However, the patient continues to get easily irritated with peers on the unit. OBJECTIVE: Mood is stabilizing, but mildly irritable. Affect is constricted. Thought process appears to be goal oriented. The patient denied any suicidal ideation, plan or intention or any hallucinations or delusions. The patient has been compliant with his treatment. The patient is able to verbally contract for safety. ASSESSMENT: The patient appears to have stabilized and is not presenting a threat to self or others. The patient is ready for discharge. PLAN: We provided coping strategies for phase of life issues. We reviewed stress management to assist the patient in increasing his frustration tolerance and more appropriately interacting with peers and staff at his new placement. We provided remotivation for the patient to stay compliant with all aspects of his care and treatment. We provided coping strategies for phase of life issues as well as adjustment to the patient's new circumstances and his overall condition. No followup is indicated as the patient is discharging to [facility] in [place] today. Thank you, Dr. Leahy for this consult and the opportunity to participate with you in this patient's care. JOB# [id number]
== END 2019-10-30 15:05 | DRG 885 ==
LOC: GERO 10-17 01:50
PROVIDERS: ADMIT Psychiatry & Neurology Psychiatry; ATTEND Psychiatry & Neurology Psychiatry
DX: F39 Unspecified mood [affective] disorder (principal); F32.9 Major depressive disorder, single episode, unspecified; I10 Essential (primary) hypertension; E11.51 Type 2 diabetes mellitus with diabetic peripheral angiopathy without gangrene; Z79.899 Other long term (current) drug therapy
CPT/HCPCS: 82948-90; 83036-90; 90899; G0410; J1815; J2060; U0003-CS; Z7610